=== PATIENT | female | born 1995 | race Caucasian/White ===

== ENCOUNTER 2021-10-23 20:20 | Inpatient (IN) | payer BC, OTHER ==
[2021-10-23] MEDS ORDERED: DINOPROSTONE 10 MG VAGINAL SUPPOSITORY VG ONE (20:55)
[2021-10-23] MEDS ORDERED: DEXTROSE 5%-LACTATED RINGERS 1,000 ML IV SCH (21:00)
[2021-10-23 21:08] VITALS: BMI 29.9
[2021-10-23] MEDS ORDERED: PROMETHAZINE HCL 25 MG/1 ML VIAL IVPUSH PRN (21:55)
[2021-10-23] MEDS ORDERED: BUTORPHANOL TARTRATE 2 MG/ML VIAL IVPB PRN (21:55)
[2021-10-24] MEDS ORDERED: AMPICILLIN SODIUM 2 GM VIAL ONE (00:03)
[2021-10-24] MEDS ORDERED: AMPICILLIN - 2 GM in SODIUM CHLORIDE 100 ML IVPB ONE (00:05)
[2021-10-24] MEDS: DEXTROSE 5%-LACTATED RINGERS 1,000 ML IV SCH ×3 (00:15→14:40)
[2021-10-24] MEDS ORDERED: ZOLPIDEM TARTRATE 5 MG TABLET PO ONE (02:07)
[2021-10-24] MEDS ORDERED: AMPICILLIN SODIUM 1 GM VIAL ONE ×5 (04:15→20:27)
[2021-10-24] MEDS: AMPICILLIN - 1 GM in SODIUM CHLORIDE 100 ML IVPB SCH ×5 (04:15→20:30)
[2021-10-24] MEDS ORDERED: SODIUM CHLORIDE 100 ML IVPB ONE (04:16)
[2021-10-24] MEDS ORDERED: BUTORPHANOL TARTRATE 2 MG/ML VIAL ONE (10:08)
[2021-10-24] MEDS ORDERED: PROMETHAZINE HCL 25 MG/1 ML VIAL ONE (10:08)
[2021-10-24] MEDS ORDERED: OXYTOCIN 30 UNITS in 0.9% NS 30 UNIT/500 ML INFUS.BAG IVPB ONE (16:49)
[2021-10-24] MEDS ORDERED: FENTANYL/BUPIVACAINE/NS/PF - PCEA - 50 ML DISP.SYRIN EP ONE ×2 (19:23→23:58)
[2021-10-24] MEDS ORDERED: BUPIVACAINE HCL/PF 0.25% (2.5MG/ML) 10 ML VIAL ONE (19:28)
[2021-10-24] MEDS ORDERED: NALOXONE HCL 0.4 MG/ML VIAL IVPUSH PRN (19:39)
[2021-10-24] MEDS: FENTANYL/BUPIVACAINE/NS/PF - PCEA - 50 ML DISP.SYRIN EP SCH (20:05)
[2021-10-24] MEDS: OXYTOCIN 30 UNITS in 0.9% NS 30 UNIT/500 ML INFUS.BAG IVPB SCH (21:05)
[2021-10-24 22:48] LABS: HEMATOCRIT 34.4 % (32.4-45.2); HEMOGLOBIN 11.5 GM/dL (10.7-15.3); MCH 29.3 pg (25.7-33.7); MCHC 33.5 g/dl (32.0-36.0); MEAN CELL VOLUME 87.4 fl (80-96); MEAN PLT VOLUME 9.9 fl (7.5-11.1); PLATELET COUNT 181 10^3/uL (134-434); RBC 3.93 M/mm3 (3.60-5.2); RDW 17.5 % (11.6-15.6); WHITE BLOOD COUNT 10.1 K/mm3 (4.0-10.0)
[2021-10-24 23:11] LABS: ALBUMIN 2.4 g/dl (3.4-5.0)
[2021-10-24 23:12] LABS: BILIRUBIN,DIRECT 0.2 mg/dL (0.0-0.2)
[2021-10-24 23:14] LABS: BILIRUBIN,TOTAL 0.3 mg/dL (0.2-1); TOT PROT 5.4 g/dl (6.4-8.2)
[2021-10-25] MEDS ORDERED: AMPICILLIN SODIUM 1 GM VIAL ONE ×3 (00:03→07:52)
[2021-10-25] MEDS: AMPICILLIN - 1 GM in SODIUM CHLORIDE 100 ML IVPB SCH ×5 (00:10→16:24)
[2021-10-25] MEDS ORDERED: ACETAMINOPHEN INJECTION 100 ML IVPB ONE (01:45)
[2021-10-25] MEDS ORDERED: ACETAMINOPHEN 1000 MG/100 ML BAG IVPB ONE (01:58)
[2021-10-25] MEDS ORDERED: FENTANYL/BUPIVACAINE/NS/PF - PCEA - 50 ML DISP.SYRIN EP ONE ×2 (03:22→07:14)
[2021-10-25] MEDS: FENTANYL/BUPIVACAINE/NS/PF - PCEA - 50 ML DISP.SYRIN EP SCH ×3 (03:34→07:15)
[2021-10-25] MEDS ORDERED: morphine SULFATE/PF 1 MG/2 ML (2cc Syringe - QUVA) ONE ×3 (08:26→09:31)
[2021-10-25] MEDS ORDERED: LIDOCAINE HCL/EPINEPHRINE/PF 20 ML VIAL ONE ×2 (08:28→09:36)
[2021-10-25] MEDS ORDERED: OXYTOCIN 20 UNITS in 0.9% NS 40 UNIT/2,000 ML INFUS.BAG IV ONE (08:28)
[2021-10-25] MEDS ORDERED: CITRIC ACID/SODIUM CITRATE 30 ML UNIT-DOSE CUP PO ONE (08:30)
[2021-10-25] MEDS ORDERED: ePHEDrine SULFATE 50 MG/1 ML AMPULE ONE (08:31)
[2021-10-25] MEDS ORDERED: ceFAZolin 2 GRAM PREMIX BAG IVPB ONE (08:43)
[2021-10-25] MEDS ORDERED: morphine SULFATE/PF 1 MG/2 ML (2cc Syringe - QUVA) EP ONE (08:47)
[2021-10-25] MEDS ORDERED: ONDANSETRON 4 MG/2 ML VIAL IVPUSH PRN (08:47)
[2021-10-25] MEDS ORDERED: CEFAZOLIN 2 GM in DEXTROSE 5%-WATER - 100 ML IVPB ONE (09:30)
[2021-10-25] MEDS ORDERED: METOPROLOL TARTRATE 5 MG/5 ML VIAL ONE (09:31)
[2021-10-25] MEDS ORDERED: ONDANSETRON 4 MG/2 ML VIAL ONE (09:31)
[2021-10-25] MEDS ORDERED: LIDOCAINE HCL/PF 2% SDV 5ML VIAL ONE (09:35)
[2021-10-25] MEDS ORDERED: DEXAMETHASONE SOD PHOSPHATE 4 MG/1 ML VIAL ONE (09:39)
[2021-10-25] MEDS ORDERED: KETOROLAC TROMETHAMINE 30 MG/1 ML VIAL ONE (09:39)
[2021-10-25] MEDS ORDERED: ceFAZolin SODIUM 1 GM VIAL ONE ×2 (09:39→17:37)
[2021-10-25] MEDS ORDERED: MIDAZOLAM HCL 2 MG/2 ML SINGLE DOSE VIAL ONE (10:00)
[2021-10-25] MEDS ORDERED: MISOPROSTOL 200 MCG TABLET ONE (10:24)
[2021-10-25] MEDS ORDERED: OXYTOCIN 10 UNITS/ML VIAL ONE (10:40)
[2021-10-25] MEDS ORDERED: MAGNESIUM SULFATE 20GM/500ML - 20 GM/500 ML INFUS.BAG IVPB STA (10:55)
[2021-10-25] MEDS ORDERED: MAGNESIUM 4GM/H20 - 4 GM/100 ML IVPB IVPB STA (10:55)
[2021-10-25] MEDS ORDERED: IBUPROFEN 800 MG/8 ML IJ IVPB PRN (10:55)
[2021-10-25] MEDS ORDERED: ACETAMINOPHEN 325 MG TABLET (FP) PO PRN (10:55)
[2021-10-25] MEDS ORDERED: OXYTOCIN 20 UNITS in 0.9% NS 20 UNIT/1,000 ML INFUS.BAG IV SCH ×2 (11:00→11:18)
[2021-10-25] MEDS ORDERED: DEXTROSE 5%-LACTATED RINGERS 1,000 ML IV SCH ×2 (11:00→11:40)
[2021-10-25] MEDS ORDERED: MAGNESIUM 4GM/H20 - 4 GM/100 ML IVPB IVPB ONE (11:22)
[2021-10-25] MEDS ORDERED: SUCCINYLCHOLINE CHLORIDE 200 MG/10 ML SYRINGE ONE (11:47)
[2021-10-25] MEDS ORDERED: PROPOFOL 20 ML ONE ×2 (11:47)
[2021-10-25] MEDS ORDERED: ETOMIDATE 20 MG/10 ML AMPUL IVPUSH ONE (11:47)
[2021-10-25] MEDS ORDERED: MAGNESIUM SULFATE 20GM/500ML - 20 GM/500 ML INFUS.BAG ONE ×2 (12:14→21:36)
[2021-10-25 14:13] LABS: HEMATOCRIT 26.7 % (32.4-45.2); HEMOGLOBIN 8.9 GM/dL (10.7-15.3); MCH 29.5 pg (25.7-33.7); MCHC 33.3 g/dl (32.0-36.0); MEAN CELL VOLUME 88.6 fl (80-96); MEAN PLT VOLUME 9.1 fl (7.5-11.1); PLATELET COUNT 170 10^3/uL (134-434); RBC 3.01 M/mm3 (3.60-5.2); RDW 18.1 % (11.6-15.6); WHITE BLOOD COUNT 14.7 K/mm3 (4.0-10.0)
[2021-10-25] MEDS ORDERED: MISOPROSTOL 200 MCG TABLET PV ONE (15:45)
[2021-10-25] MEDS: OXYTOCIN 30 UNITS in 0.9% NS 30 UNIT/500 ML INFUS.BAG IVPB SCH (17:26)
[2021-10-25] MEDS: CEFAZOLIN 1 GM in DEXTROSE 5%-WATER - 1 GM/50 ML IVPB IVPB SCH (18:00)
[2021-10-25] MEDS ORDERED: oxyCODONE HCL 5 MG TABLET PO PRN (22:55)
[2021-10-26] MEDS: AMPICILLIN - 1 GM in SODIUM CHLORIDE 100 ML IVPB SCH ×2 (00:32→08:01)
[2021-10-26] MEDS: FERROUS SO4 325 MG TABLET (FP) PO SCH ×3 (00:33→22:33)
[2021-10-26] MEDS ORDERED: ceFAZolin SODIUM 1 GM VIAL ONE ×3 (03:16→17:13)
[2021-10-26] MEDS ORDERED: DEXTROSE 5%-WATER - 50 ML IVPB ONE ×3 (03:16→17:13)
[2021-10-26] MEDS: CEFAZOLIN 1 GM in DEXTROSE 5%-WATER - 1 GM/50 ML IVPB IVPB SCH ×2 (03:20→09:47)
[2021-10-26 07:14] LABS: BASO % 0.1 % (0-2.0); EOS % 0.7 % (0-4.5); HEMATOCRIT 22.7 % (32.4-45.2); HEMOGLOBIN 7.8 GM/dL (10.7-15.3); LYMPH % 17.7 % (8-40); MCH 30.4 pg (25.7-33.7); MCHC 34.4 g/dl (32.0-36.0); MEAN CELL VOLUME 88.4 fl (80-96); MEAN PLT VOLUME 8.5 fl (7.5-11.1); MONO % 6.7 % (3.8-10.2); NEUT % 74.8 % (42.8-82.8); PLATELET COUNT 146 10^3/uL (134-434); RBC 2.56 M/mm3 (3.60-5.2); RDW 18.2 % (11.6-15.6); WHITE BLOOD COUNT 9.5 K/mm3 (4.0-10.0)
[2021-10-26] MEDS: FENTANYL/BUPIVACAINE/NS/PF - PCEA - 50 ML DISP.SYRIN EP SCH (07:26)
[2021-10-26] MEDS: PRENATAL VITAMINS W/ FOLIC ACID TABLET (FP) PO SCH (09:46)
[2021-10-26] MEDS: ENOXAPARIN NA (PORCINE) 40 MG/0.4 ML DISP.SYRIN SQ SCH (09:46)
[2021-10-26] MEDS ORDERED: BISACODYL 10 MG SUPP.RECT RC PRN (10:55)
[2021-10-26] MEDS: IBUPROFEN 600 MG TABLET (FP) PO PRN ×2 (16:27→21:52)
[2021-10-26] MEDS: SIMETHICONE 80 MG TAB.CHEW (FP) PO PRN ×2 (16:27→21:53)
[2021-10-26] MEDS: SENNOSIDES/DOCUSATE COMBO (SENNA PLUS) TABLET (UD) PO PRN (22:33)
[2021-10-27] MEDS: IBUPROFEN 600 MG TABLET (FP) PO PRN ×3 (07:24→22:33)
[2021-10-27] MEDS: SIMETHICONE 80 MG TAB.CHEW (FP) PO PRN ×3 (07:25→22:32)
[2021-10-27 08:51] LABS: BASO % 0.3 % (0-2.0); EOS % 1.9 % (0-4.5); HEMATOCRIT 23.7 % (32.4-45.2); HEMOGLOBIN 8.1 GM/dL (10.7-15.3); LYMPH % 19.1 % (8-40); MCH 30.4 pg (25.7-33.7); MEAN CELL VOLUME 89.3 fl (80-96); MONO % 5.2 % (3.8-10.2); NEUT % 73.5 % (42.8-82.8); PLATELET COUNT 183 10^3/uL (134-434); RBC 2.66 M/mm3 (3.60-5.2); RDW 18.2 % (11.6-15.6); WHITE BLOOD COUNT 10.7 K/mm3 (4.0-10.0)
[2021-10-27] MEDS: PRENATAL VITAMINS W/ FOLIC ACID TABLET (FP) PO SCH (09:46)
[2021-10-27] MEDS: ENOXAPARIN NA (PORCINE) 40 MG/0.4 ML DISP.SYRIN SQ SCH (09:46)
[2021-10-27] MEDS: FERROUS SO4 325 MG TABLET (FP) PO SCH ×2 (09:46→22:32)
[2021-10-27] MEDS: SENNOSIDES/DOCUSATE COMBO (SENNA PLUS) TABLET (UD) PO PRN (22:33)
[2021-10-27] MEDS: oxyCODONE HCL 5 MG TABLET PO PRN (23:24)
[2021-10-28] MEDS: oxyCODONE HCL 5 MG TABLET PO PRN (07:50)
[2021-10-28] MEDS: SIMETHICONE 80 MG TAB.CHEW (FP) PO PRN (07:50)
[2021-10-28 08:40] LABS: HEMOGLOBIN 7.8 GM/dL (10.7-15.3); MCH 30.1 pg (25.7-33.7); MCHC 34.1 g/dl (32.0-36.0); MEAN CELL VOLUME 88.4 fl (80-96); PLATELET COUNT 218 10^3/uL (134-434); RDW 17.6 % (11.6-15.6); WHITE BLOOD COUNT 8.6 K/mm3 (4.0-10.0)
[2021-10-28] MEDS: PRENATAL VITAMINS W/ FOLIC ACID TABLET (FP) PO SCH (10:24)
[2021-10-28] MEDS: ENOXAPARIN NA (PORCINE) 40 MG/0.4 ML DISP.SYRIN SQ SCH (10:24)
[2021-10-28] MEDS: FERROUS SO4 325 MG TABLET (FP) PO SCH (10:24)
[2021-10-28 11:35] VITALS: BP 125/87; TEMP 98.9
[2021-10-28 12:12] VITALS: PULSE 92
== END 2021-10-28 13:10 | disposition home or self-care (01) | DRG 788 ==
LOC: JLDR 20:20 → J3W 10-25 23:42 → UNDODISIN 10-28 12:43
PROVIDERS: ADMIT Obstetrics & Gynecology; ATTEND Obstetrics & Gynecology
PROC: 3E0P7VZ Introduction of Hormone into Female Reproductive, Via Natural or Artificial Opening (ICD-10-PCS; 2021-10-23)
PROC: 10D00Z1 Extraction of Products of Conception, Low, Open Approach (ICD-10-PCS; principal; 2021-10-25)
DX: O62.0 Primary inadequate contractions (principal); O14.04 Mild to moderate pre-eclampsia, complicating childbirth; O99.820 Streptococcus B carrier state complicating pregnancy; Z3A.40 40 weeks gestation of pregnancy; Z37.0 Single live birth
CPT/HCPCS: 36415; 80076; 82570; 83735; 84156; 85025; 85027